=== PATIENT | male | born 1995 | race Caucasian/White ===

== ENCOUNTER → 2017-05-25 | Outpatient (CLI) | payer OTHER ==
--- NOTE | 2017-05-25 17:17 | XR ---
EXAMINATION TYPE: XR scoliosis survey DATE OF EXAM: 05/25/2017 COMPARISON: NONE HISTORY: 22-year-old male cerebral palsy. TECHNIQUE: AP and lateral views. Exam performed with the patient supine and sitting CT is unable to s tand erect. FINDINGS: Left-sided generator device with leads extending to the left side of the neck. 12 rib bearing thoracic vertebral bodies. 5 lumbar type vertebral bodies. There is a rotary reverse S-shaped scoliosis. Possible butterfly vertebra of C7. The thoracic levoconvex curvature has a Johnston angle of 30 degrees. The thoracolumbar dextroconvex curvature in the common 28 degrees. There is osteopenia limiting assessment on the lateral view. IMPRESSION: 1. 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 2. Moderate reverse S-shaped scoliosis. Johnston angle of 30 degrees in the thoracic spine and 28 degrees at the thoracolumbar junction.
--- NOTE | 2017-06-08 10:37 | XR ---
EXAMINATION TYPE: XR Hip Bilateral Complete DATE OF EXAM: 06/08/2017 CLINICAL HISTORY: pain TECHNIQUE: AP and frogleg views of the bilateral hips are obtained. COMPARISON: None. FINDINGS: There is dysplastic left hip with remodeling of the left femoral head and acetabular fossa. Partial dislocation of the dysplastic left femoral head. The right hip appears to be well formed. No dysplastic changes seen. No evidence for fracture or dislocation. IMPRESSION: 1. Congenital hip dysplasia left hip.
== END | disposition home or self-care (01) ==
LOC: RADXRMAIN 11:40
PROVIDERS: ATTEND Pediatrics
DX: M41.9 Scoliosis, unspecified (principal); Q65.89 Other specified congenital deformities of hip; G80.8 Other cerebral palsy
CPT/HCPCS: 72082; 73521

== ENCOUNTER 2018-08-14 08:08 | Inpatient (IN) | payer OTHER ==
[2018-08-14] MEDS ORDERED: SODIUM CHLORIDE 0.9% 500 ML 500 ML IV STA (08:31)
[2018-08-14] MEDS ORDERED: SODIUM CHLORIDE 0.9% 1,000 ML IV STA (08:31)
[2018-08-14] MEDS ORDERED: ACETAMINOPHEN IVPB STA (08:46)
[2018-08-14] MEDS ORDERED: methylPREDNISolone SOD SUCCI 125 MG/2 ML VIAL IV STA (08:46)
--- NOTE | 2018-08-14 09:08 | ED ---
Weakness HPI - General Chief complaint: Weakness Stated complaint: Congestion/cough Time Seen by Provider: 08/14/18 08:23 Source: patient Mode of arrival: EMS Limitations: no limitations - Related Data Home Medications Medication Instructions Recorded Confirmed Omeprazole [PriLOSEC] 20 mg PO BID 02/03/16 08/14/18 Polyethylene Glycol 3350 [Miralax] 17 gm PO DAILY 02/03/16 08/14/18 Scopolamine [TransDerm Scop] 1 patch TRANSDERM Q72H 02/03/16 08/14/18 clonazePAM [KlonoPIN] 0.5 mg PO BID 02/03/16 08/14/18 lamoTRIgine [LaMICtal] 150 mg PO BID 02/03/16 08/14/18 Cholecalciferol [Vitamin D3] 1,000 unit PO DAILY 08/14/18 08/14/18 Diazepam [Diastat] 7.5 mg RECTAL DAILY PRN 08/14/18 08/14/18 Levofloxacin [Levaquin] 500 mg PO DAILY 08/14/18 08/14/18 Multivitamins, Thera [Multivitamin 1 tab PO DAILY 08/14/18 08/14/18 (formulary)] Ondansetron [Zofran ODT] 4 mg PO Q8HR PRN 08/14/18 08/14/18 levETIRAcetam [Keppra] 1,000 mg PO Q12HR 08/14/18 08/14/18 tiZANidine HCL 4 mg PO BID 08/14/18 08/14/18 Allergies Allergy/AdvReac Type Severity Reaction Status Date / Time adhesive tape Allergy BLISTERS Verified 08/14/18 08:56 AND RED SKIN Review of Systems ROS Statement: Those systems with pertinent positive or pertinent negative responses have been documented in the HPI. ROS Other: All systems not noted in ROS Statement are negative. Past Medical History Past Medical History: Asthma, Seizure Disorder Additional Past Medical History / Comment(s): cerebral palsy, VOMITING , INCONTINENT, LAST SEIZURE 07/17/16 History of Any Multi-Drug Resistant Organisms: None Reported Past Surgical History: Hernia Repair Additional Past Surgical History / Comment(s): VAGAL NERVE STIMULATOR, TESTICLE SURGERY, BILATERAL FOOT SURGERY, brain surg tumor removal Past Anesthesia/Blood Transfusion Reactions: No Reported Reaction Past Psychological History: No Psychological Hx Reported Smoking Status: Never smoker - Past Family History Mother Family Medical History: No Reported History General Exam Limitations: no limitations Course Vital Signs 08/14/18 08/14/18 08/14/18 08:12 08:20 08:30 Temperature 98.5 F Pulse Rate 117 H 122 H Respiratory 28 H 20 Rate Blood Pressure 94/63 94/63 O2 Sat by Pulse 92 L 90 L 86 L Oximetry 08/14/18 08/14/18 08/14/18 08:40 08:50 09:00 Temperature Pulse Rate 118 H 116 H 114 H Respiratory 22 20 220 H Rate Blood Pressure 86/60 86/60 86/60 O2 Sat by Pulse 90 L 92 L 92 L Oximetry 08/14/18 08/14/18 08/14/18 09:10 09:20 09:30 Temperature Pulse Rate 114 H 102 H Respiratory 26 H 21 Rate Blood Pressure 95/65 95/65 95/65 O2 Sat by Pulse 90 L 91 L Oximetry 08/14/18 08/14/18 08/14/18 10:00 10:10 10:20 Temperature Pulse Rate 94 112 H 100 Respiratory 22 31 H 28 H Rate Blood Pressure 92/56 92/56 O2 Sat by Pulse 93 L 97 Oximetry 08/14/18 08/14/18 10:30 10:32 Temperature Pulse Rate 96 96 Respiratory 30 H 30 H Rate Blood Pressure 92/56 92/56 O2 Sat by Pulse Oximetry - Reevaluation(s) Reevaluation #1: 08/14/18 11:35 Medical record is reviewed Reevaluation #2: 08/14/18 11:35 did have recurrent seizure here in the ER EKG Findings - EKG Comments: EKG Findings:: EKG shows sinus tachycardia rate 1:15, ME 146, QRS 80, QTC 445 Medical Decision Making - Medical Decision Making 20 female the ER for evaluation of fever weakness and altered mental status, patient with recurrent seizures as well. Prolonged postictal state. Patient will be admitted for neurologic evaluation, IV antibiotics regarding pneumonia - Lab Data Result diagrams: 08/14/18 08:30 08/14/18 08:30 Lab Results 08/14/18 08/14/18 08/14/18 Range/Units 08:30 08:30 08:30 WBC 15.2 H (3.8-10.6) k/uL RBC 4.31 (4.30-5.90) m/uL Hgb 11.5 L (13.0-17.5) gm/dL Hct 35.9 L (39.0-53.0) % MCV 83.2 (80.0-100.0) fL MCH 26.7 (25.0-35.0) pg MCHC 32.1 (31.0-37.0) g/dL RDW 19.6 H (11.5-15.5) % Plt Count 392 (150-450) k/uL Neutrophils % 87 % Lymphocytes % 6 % Monocytes % 6 % Eosinophils % 0 % Basophils % 0 % Neutrophils # 13.2 H (1.3-7.7) k/uL Lymphocytes # 0.8 L (1.0-4.8) k/uL Monocytes # 0.9 (0-1.0) k/uL Eosinophils # 0.0 (0-0.7) k/uL Basophils # 0.0 (0-0.2) k/uL Anisocytosis Slight Microcytosis Slight PT (9.0-12.0) sec INR (<1.2) APTT (22.0-30.0) sec Sodium 143 (137-145) mmol/L Potassium 4.4 (3.5-5.1) mmol/L Chloride 106 (98-107) mmol/L Carbon Dioxide 24 (22-30) mmol/L Anion Gap 13 mmol/L BUN 43 H (9-20) mg/dL Creatinine 1.03 (0.66-1.25) mg/dL Est GFR (CKD-EPI)AfAm >90 (>60 ml/min/1.73 sqM) Est GFR (CKD-EPI)NonAf >90 (>60 ml/min/1.73 sqM) Glucose 123 H (74-99) mg/dL Plasma Lactic Acid Michael (0.7-2.0) mmol/L Calcium 9.6 (8.4-10.2) mg/dL Phosphorus 4.2 (2.5-4.5) mg/dL Magnesium 3.0 H (1.6-2.3) mg/dL Total Bilirubin 0.2 (0.2-1.3) mg/dL AST 35 (17-59) U/L ALT 29 (21-72) U/L Alkaline Phosphatase 163 H (38-126) U/L Total Creatine Kinase 424 H (55-170) U/L CK-MB (CK-2) 3.5 H (0.0-2.4) ng/mL CK-MB (CK-2) Rel Index 0.8 Troponin I 0.060 H* (0.000-0.034) ng/mL Total Protein 7.4 (6.3-8.2) g/dL Albumin 4.0 (3.5-5.0) g/dL 08/14/18 08/14/18 Range/Units 08:30 08:30 WBC (3.8-10.6) k/uL RBC (4.30-5.90) m/uL Hgb (13.0-17.5) gm/dL Hct (39.0-53.0) % MCV (80.0-100.0) fL MCH (25.0-35.0) pg MCHC (31.0-37.0) g/dL RDW (11.5-15.5) % Plt Count (150-450) k/uL Neutrophils % % Lymphocytes % % Monocytes % % Eosinophils % % Basophils % % Neutrophils # (1.3-7.7) k/uL Lymphocytes # (1.0-4.8) k/uL Monocytes # (0-1.0) k/uL Eosinophils # (0-0.7) k/uL Basophils # (0-0.2) k/uL Anisocytosis Microcytosis PT 11.3 (9.0-12.0) sec INR 1.2 H (<1.2) APTT 27.7 (22.0-30.0) sec Sodium (137-145) mmol/L Potassium (3.5-5.1) mmol/L Chloride (98-107) mmol/L Carbon Dioxide (22-30) mmol/L Anion Gap mmol/L BUN (9-20) mg/dL Creatinine (0.66-1.25) mg/dL Est GFR (CKD-EPI)AfAm (>60 ml/min/1.73 sqM) Est GFR (CKD-EPI)NonAf (>60 ml/min/1.73 sqM) Glucose (74-99) mg/dL Plasma Lactic Acid Michael 1.4 (0.7-2.0) mmol/L Calcium (8.4-10.2) mg/dL Phosphorus (2.5-4.5) mg/dL Magnesium (1.6-2.3) mg/dL Total Bilirubin (0.2-1.3) mg/dL AST (17-59) U/L ALT (21-72) U/L Alkaline Phosphatase (38-126) U/L Total Creatine Kinase (55-170) U/L CK-MB (CK-2) (0.0-2.4) ng/mL CK-MB (CK-2) Rel Index Troponin I (0.000-0.034) ng/mL Total Protein (6.3-8.2) g/dL Albumin (3.5-5.0) g/dL - Radiology Data Radiology results: report reviewed (ED brain negative chest x-ray positive for pneumonia), image reviewed Disposition Clinical Impression: Dehydration, Community acquired pneumonia, Recurrent seizures Disposition: ADMITTED IP TO THIS [facility] Condition: Fair Is patient prescribed a controlled substance at d/c from ED?: No Referrals: Stephanie Minor MD [Primary Care Provider] - 1-2 days
[2018-08-14 09:12] LABS: ALT 29 U/L (21-72); AST 35 U/L (17-59); Alkaline Phosphatase 163 U/L (38-126); Anion Gap 13 mmol/L; Blood Urea Nitrogen 43 mg/dL (9-20); Calcium 9.6 mg/dL (8.4-10.2); Carbon Dioxide 24 mmol/L (22-30); Chloride 106 mmol/L (98-107); Glucose 123 mg/dL (74-99); Phosphorus 4.2 mg/dL (2.5-4.5); Potassium 4.4 mmol/L (3.5-5.1); Sodium 143 mmol/L (137-145); Total Bilirubin 0.2 mg/dL (0.2-1.3); Total Protein 7.4 g/dL (6.3-8.2)
[2018-08-14 09:13] LABS: Anisocytosis Slight; Basophils % (A) 0 %; Eosinophils % (A) 0 %; HCT 35.9 % (39.0-53.0); HGB 11.5 gm/dL (13.0-17.5); Lymphocytes # (A) 0.8 k/uL (1.0-4.8); Lymphocytes % (A) 6 %; MCH 26.7 pg (25.0-35.0); MCHC 32.1 g/dL (31.0-37.0); MCV 83.2 fL (80.0-100.0); Mean Platelet Volume 7.4; Microcytosis Slight; Monocytes # (A) 0.9 k/uL (0-1.0); Monocytes % (A) 6 %; Neutrophils # (A) 13.2 k/uL (1.3-7.7); Neutrophils % (A) 87 %; Platelet Count 392 k/uL (150-450); RBC 4.31 m/uL (4.30-5.90); RDW 19.6 % (11.5-15.5); WBC 15.2 k/uL (3.8-10.6)
[2018-08-14 09:22] LABS: INR 1.2 (<1.2); Partial Thromboplastin Time 27.7 sec (22.0-30.0); Prothrombin Time 11.3 sec (9.0-12.0)
[2018-08-14 09:35] LABS: Creatine Kinase MB 3.5 ng/mL (0.0-2.4)
[2018-08-14 10:01] LABS: Troponin I 0.06 ng/mL (0.000-0.034)
--- NOTE | 2018-08-14 10:06 | CT ---
EXAMINATION TYPE: CT brain wo con DATE OF EXAM: 08/14/2018 COMPARISON: Prior brain CT 02/03/2016 HISTORY: seizure activity/brain tumor [address] DLP: 1082.4 mGycm. Automated Exposure Control for Dose Reduction was Utilized. TECHNIQUE: CT scan of the head is performed without contrast. FINDINGS: There is no acute intracranial hemorrhage, mass effect, or midline shift identified. Ther e is been interval left frontal craniotomy, some focal encephalomalacia is present in the left fronta l lobe, an area previous abnormal low attenuation at this level is no longer seen and most likely pos top change. Extra-axial phenomenon again noted at the posterior horn of the left lateral ventricle, t emporal horn. Septal malacia present in the left occipital lobe similar to prior exam. Magna cisterna magna appearance in the posterior fossa is again seen. Inflammatory changes present in the sphenoid sinus, ethmoid air cells. IMPRESSION: No acute intracranial hemorrhage, mass effect, or midline shift is seen. Interval surger y, there is postop change with volume loss of the left cerebrum as described.
--- NOTE | 2018-08-14 10:10 | XR ---
EXAMINATION TYPE: XR chest 2V DATE OF EXAM: 08/14/2018 COMPARISON: Prior chest x-ray 02/03/2016 HISTORY: Weakness, abnormal chest x-ray TECHNIQUE: Frontal and lateral views of the chest are obtained. FINDINGS: There is no pleural effusion or pneumothorax seen. Difficult to exclude airspace disease in the left lower lobe. The cardiac silhouette size is within normal limits. The osseous structure s are intact. Generators present in left pectoral region, leads are coursing towards the left neck. T here are overlying cardiac leads. There is an underlying scoliosis. IMPRESSION: Correlate to exclude lower lobe pneumonia.
[2018-08-14] MEDS ORDERED: AZITHROMYCIN 500 MG in SODIUM CHLORIDE 0.9% 250 ML IVPB STA (11:32)
[2018-08-14] MEDS ORDERED: PNEUMONIA PROTOCOL UTILIZED 1 EACH MISC PO PRN (11:32)
[2018-08-14 11:39] LABS: Appearance,Urine Clear (Clear); Bilirubin,Urine Negative (Negative); Blood,Urine Negative (Negative); Color,Urine Yellow; Glucose,Urine (UA) Negative (Negative); Hyaline Casts,Urine 5 /lpf (0-2); Ketones,Urine Trace (Negative); Leukocyte Esterase,Urine Negative (Negative); Mucus,Urine Rare /hpf; Nitrite,Urine Negative (Negative); PH, Urine 5.5 (5.0-8.0); Protein,Urine 1+ (Negative); Specific Gravity,Urine 1.024 (1.001-1.035); Squamous Epithelial Cell,Urine <1 /hpf (0-4); Urobilinogen,Urine <2.0 mg/dL (<2.0); WBC,Urine 2 /hpf (0-5)
[2018-08-14] MEDS ORDERED: INFLUENZA VACCINE (6 MOS+) 60 MCG/0.5 ML SYRINGE IM ONE (12:38)
[2018-08-14] MEDS: IPRATROPIUM-ALBUTEROL 3 ML NEB INHALATION SCH ×3 (13:05→21:20)
[2018-08-14] MEDS ORDERED: DIAZEPAM 7.5 MG RECTAL PRN (14:54)
[2018-08-14] MEDS ORDERED: LORazepam 2 MG/ML INJ IV PRN (15:03)
[2018-08-14] MEDS: SODIUM CHLORIDE 0.9% 1,000 ML IV SCH ×2 (15:05→21:50)
[2018-08-14] MEDS ORDERED: SCOPOLAMINE 1.5MG/72HR PATCH TRANSDERM SCH (16:00)
[2018-08-14] MEDS ORDERED: PANTOPRAZOLE 40 MG TABLET PO SCH (17:30)
[2018-08-14] MEDS: lamoTRIgine 25 MG TAB PO SCH (18:55)
[2018-08-14] MEDS: lamoTRIgine 100 MG TAB PO SCH (18:56)
--- NOTE | 2018-08-14 19:20 | P.CNNES ---
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 The patient is nonverbal and has severe MR. History is obtained from the patient's guardian and grandmother. Apparently the patient had a seizure in school day and he was sent to [facility]. He was found to be all right and he was sent home. Yesterday his grandmother said she he looked fine so she sent him to school again. Apparently in school he vomited and had a seizure and she was sent home. She took and then to his primary care physician and he was started on antibiotic. The patient's grandmother then noticed that his he had developed some rapid breathing and sweating so she called EMS and requested that the patient be brought to [facility]. The patient was brought here today and the complaint was weakness congestion and cough. Normally when he gets 6 he also has more frequent seizures. His seizure type is usually myoclonic and he has one a week and in general but when he sick he can have more frequent seizures. The patient is on Lamictal Keppra and Klonopin for his seizures as well as a VNS. He is followed with neurology at [facility]. Review of Systems ROS unobtainable: due to mental status Past Medical History Past Medical History: Asthma, Seizure Disorder Additional Past Medical History / Comment(s): Cerebrak palsey, nonverbal, able to knee walk and occasionally uses walker but goes backwards, needs to be fed, incontinent or urine/stool, seizures with last time 08/14/18, occasional problem with vomiting for past year, esophagitis, hiatal hernia. History of Any Multi-Drug Resistant Organisms: None Reported Past Surgical History: Hernia Repair Additional Past Surgical History / Comment(s): VAGAL NERVE STIMULATOR, SURGERY FOR TESTICULAR NON DESCENCION/INGUINAL HERNIA SURGERY, BILATERAL FOOT SURGERY- LENGTHENED ACHILLES AND MOVED MUSCLES, benign brain surg tumor removal, EGD with bx. Past Anesthesia/Blood Transfusion Reactions: No Reported Reaction Past Psychological History: No Psychological Hx Reported Additional Psychological History / Comment(s): Pt resides with his mother/ father. MotherOpal is pt's legal guardian and caregiver. Pt is lifted by parents into a wheelchair. Pt at times will knee walk. He will occasionally use a rolled walker but goes backwards. He is nonverbal. He cannot feed himself. He is incontinent of urine and stool. Smoking Status: Never smoker Past Alcohol Use History: None Reported Past Drug Use History: None Reported - Past Family History Mother Family Medical History: Cancer Additional Family Medical History / Comment(s): Mother had ovarian cancer with surgery in 2017. Father Additional Family Medical History / Comment(s): Pts father is not involved in pt 's life. Father's side of family has diabetes. Medications and Allergies Home Medications Medication Instructions Recorded Confirmed Type Omeprazole [PriLOSEC] 20 mg PO BID 02/03/16 08/14/18 History Polyethylene Glycol 3350 [Miralax] 17 gm PO DAILY 02/03/16 08/14/18 History Scopolamine [TransDerm Scop] 1 patch TRANSDERM Q72H 02/03/16 08/14/18 History clonazePAM [KlonoPIN] 0.5 mg PO BID 02/03/16 08/14/18 History lamoTRIgine [LaMICtal] 150 mg PO BID 02/03/16 08/14/18 History Cholecalciferol [Vitamin D3] 1,000 unit PO DAILY 08/14/18 08/14/18 History Diazepam [Diastat] 7.5 mg RECTAL DAILY PRN 08/14/18 08/14/18 History Levofloxacin [Levaquin] 500 mg PO DAILY 08/14/18 08/14/18 History Multivitamins, Thera [Multivitamin 1 tab PO DAILY 08/14/18 08/14/18 History (formulary)] Ondansetron [Zofran ODT] 4 mg PO Q8HR PRN 08/14/18 08/14/18 History levETIRAcetam [Keppra] 1,000 mg PO Q12HR 08/14/18 08/14/18 History tiZANidine HCL 4 mg PO BID 08/14/18 08/14/18 History Allergies Allergy/AdvReac Type Severity Reaction Status Date / Time adhesive tape Allergy BLISTERS Verified 08/14/18 08:56 AND RED SKIN Physical Examination - Vital Signs Vital Signs: Vital Signs Temp Pulse Pulse Resp BP BP Pulse Ox 08/14/18 16:00 98.7 F 85 20 100/66 97 08/14/18 13:37 98.2 F 91 86 21 107/75 102/65 98 08/14/18 13:05 91 24 107/75 97 08/14/18 12:50 91 24 107/75 97 08/14/18 12:40 87 22 107/75 98 08/14/18 12:30 85 22 97/82 98 08/14/18 12:20 89 19 97/82 99 08/14/18 12:10 85 25 H 97/82 100 08/14/18 12:00 82 17 99/70 08/14/18 11:50 87 22 99/70 99 08/14/18 11:40 86 11 L 99/70 98 08/14/18 11:30 88 23 92/64 99 08/14/18 11:20 92 22 92/64 99 08/14/18 11:10 90 27 H 92/64 99 08/14/18 11:00 92 21 88/58 98 08/14/18 10:50 89 26 H 88/58 99 08/14/18 10:40 96 19 88/58 96 08/14/18 10:32 96 30 H 92/56 08/14/18 10:30 96 30 H 92/56 08/14/18 10:20 100 28 H 92/56 08/14/18 10:10 112 H 31 H 92/56 97 08/14/18 10:00 94 22 93 L 08/14/18 09:30 95/65 08/14/18 09:20 102 H 21 95/65 91 L 08/14/18 09:10 114 H 26 H 95/65 90 L 08/14/18 09:00 114 H 220 H 86/60 92 L 08/14/18 08:50 116 H 20 86/60 92 L 08/14/18 08:40 118 H 22 86/60 90 L 08/14/18 08:30 122 H 20 94/63 86 L 08/14/18 08:20 98.5 F 117 H 28 H 94/63 90 L 08/14/18 08:12 92 L Intake and Output 08/14/18 08/14/18 08/14/18 06:59 14:59 22:59 Intake Total 600 Balance 600 Intake: Amount of Fluid Infused ( 600 ml) Other: Voiding Method Diaper Diaper Weight 31.751 kg - Constitutional General appearance: thin - EENT EENT: PERRL - Respiratory Respiratory: lungs clear - Cardiovascular Cardiovascular: regular rate - Neurologic Neurologic examination: Mental status the patient was awake he was alert his eyes were open he made eye contact he was nonverbal he has severe cognitive impairment next Cranial nerve examination pupils were 2 mm and equal there is no facial asymmetry next Motor examination he has spastic paresis in all 4 extremities Results - Laboratory Findings CBC and BMP: 08/14/18 08:30 08/14/18 08:30 Abnormal Lab Findings: Abnormal Labs 08/14/18 08/14/18 08/14/18 08:30 08:30 08:30 WBC 15.2 H Hgb 11.5 L Hct 35.9 L RDW 19.6 H Neutrophils # 13.2 H Lymphocytes # 0.8 L INR BUN 43 H Glucose 123 H Magnesium 3.0 H Alkaline Phosphatase 163 H Total Creatine Kinase 424 H CK-MB (CK-2) 3.5 H Troponin I 0.060 H* Urine Protein Urine Ketones Hyaline Casts Urine Mucus 08/14/18 08/14/18 08:30 10:45 WBC Hgb Hct RDW Neutrophils # Lymphocytes # INR 1.2 H BUN Glucose Magnesium Alkaline Phosphatase Total Creatine Kinase CK-MB (CK-2) Troponin I Urine Protein 1+ H Urine Ketones Trace H Hyaline Casts 5 H Urine Mucus Rare H Assessment and Plan (1) Recurrent seizures Current Visit: Yes Status: Acute SNOMED Code(s): 33986628 (2) Community acquired pneumonia Current Visit: Yes Status: Acute SNOMED Code(s): 389164523 (3) Dehydration Current Visit: Yes Status: Acute SNOMED Code(s): 64378828 Plan: The patient is a 23-year-old man with epilepsy with recent recurrent seizures most likely due to underlying infection. He is being treated for community- acquired pneumonia. According to his grandmother he is looking better now and he is able to swallow his pills. Patient will have Keppra and Lamictal levels drawn. He had a CT of the brain in the emergency room which showed no acute hemorrhage or mass effect. There was also postoperative changes seen in the left cerebrum
[2018-08-14] MEDS: levETIRAcetam IV 1,000 MG in SALINE 1 100ML.BAG IVPB SCH (19:58)
[2018-08-14] MEDS: tiZANidine 4 MG TAB PO SCH (19:59)
[2018-08-14] MEDS: PANTOPRAZOLE 40 MG/10 ML VIAL IV SCH (19:59)
[2018-08-14] MEDS ORDERED: levETIRAcetam 500 MG TAB PO SCH (21:00)
--- NOTE | 2018-08-14 23:27 | P.HPIM ---
History of Present Illness H&P Date: 08/14/18 Chief Complaint: Seizures Patient is a 23-year-old male with a known history of cerebral palsy, seizure disorder and asthma was brought to the hospital due to fever and [facility] seizure activity at home. Patient also having prolonged postictal state. Patient is nonverbal at baseline. Aberrantly patient had a seizure activity while he was at school initially 2 days back and was sent to [facility]. Patient was monitored at [facility] and was sent home. Patient had a seizure activity of going back to school and has an episode of vomiting as well. Patient also developed fever and also shortness of breath with a rapid breathing and EMS was called to transfer the patient to [facility] for neurological evaluation. Patient is having shortness of breath and also copious amount of secretions in the throat. Patient also had myoclonic seizure activity this morning while he was in the cardiac care unit. Patient cannot provide any history and most of the history was taken from the medical records and grandmother at bedside. Chest x-ray showed correlate for lower lobe pneumonia. CT head showed no acute intracranial hemorrhage, mass affect or midline shift noted. Patient is kept nothing by mouth currently.. Patient was afebrile on admission. Patient is tachycardic and tachypneic. Review of Systems Complete review of systems could not be obtained from the patient. Past Medical History Past Medical History: Asthma, Seizure Disorder Additional Past Medical History / Comment(s): Cerebrak palsey, nonverbal, able to knee walk and occasionally uses walker but goes backwards, needs to be fed, incontinent or urine/stool, seizures with last time 08/14/18, occasional problem with vomiting for past year, esophagitis, hiatal hernia. History of Any Multi-Drug Resistant Organisms: None Reported Past Surgical History: Hernia Repair Additional Past Surgical History / Comment(s): VAGAL NERVE STIMULATOR, SURGERY FOR TESTICULAR NON DESCENCION/INGUINAL HERNIA SURGERY, BILATERAL FOOT SURGERY- LENGTHENED ACHILLES AND MOVED MUSCLES, benign brain surg tumor removal, EGD with bx. Past Anesthesia/Blood Transfusion Reactions: No Reported Reaction Past Psychological History: No Psychological Hx Reported Additional Psychological History / Comment(s): Pt resides with his mother/ father. MotherOpal is pt's legal guardian and caregiver. Pt is lifted by parents into a wheelchair. Pt at times will knee walk. He will occasionally use a rolled walker but goes backwards. He is nonverbal. He cannot feed himself. He is incontinent of urine and stool. Smoking Status: Never smoker Past Alcohol Use History: None Reported Past Drug Use History: None Reported - Past Family History Mother Family Medical History: Cancer Additional Family Medical History / Comment(s): Mother had ovarian cancer with surgery in 2017. Father Additional Family Medical History / Comment(s): Pts father is not involved in pt 's life. Father's side of family has diabetes. Medications and Allergies Home Medications Medication Instructions Recorded Confirmed Type Omeprazole [PriLOSEC] 20 mg PO BID 02/03/16 08/14/18 History Polyethylene Glycol 3350 [Miralax] 17 gm PO DAILY 02/03/16 08/14/18 History Scopolamine [TransDerm Scop] 1 patch TRANSDERM Q72H 02/03/16 08/14/18 History clonazePAM [KlonoPIN] 0.5 mg PO BID 02/03/16 08/14/18 History lamoTRIgine [LaMICtal] 150 mg PO BID 02/03/16 08/14/18 History Cholecalciferol [Vitamin D3] 1,000 unit PO DAILY 08/14/18 08/14/18 History Diazepam [Diastat] 7.5 mg RECTAL DAILY PRN 08/14/18 08/14/18 History Levofloxacin [Levaquin] 500 mg PO DAILY 08/14/18 08/14/18 History Multivitamins, Thera [Multivitamin 1 tab PO DAILY 08/14/18 08/14/18 History (formulary)] Ondansetron [Zofran ODT] 4 mg PO Q8HR PRN 08/14/18 08/14/18 History levETIRAcetam [Keppra] 1,000 mg PO Q12HR 08/14/18 08/14/18 History tiZANidine HCL 4 mg PO BID 08/14/18 08/14/18 History Allergies Allergy/AdvReac Type Severity Reaction Status Date / Time adhesive tape Allergy BLISTERS Verified 08/14/18 08:56 AND RED SKIN Physical Exam Vitals: Vital Signs Temp Pulse Resp BP Pulse Ox 08/14/18 12:50 91 24 107/75 97 08/14/18 12:40 87 22 107/75 98 08/14/18 12:30 85 22 97/82 98 08/14/18 12:20 89 19 97/82 99 08/14/18 12:10 85 25 H 97/82 100 08/14/18 12:00 82 17 99/70 08/14/18 11:50 87 22 99/70 99 08/14/18 11:40 86 11 L 99/70 98 08/14/18 11:30 88 23 92/64 99 08/14/18 11:20 92 22 92/64 99 08/14/18 11:10 90 27 H 92/64 99 08/14/18 11:00 92 21 88/58 98 08/14/18 10:50 89 26 H 88/58 99 08/14/18 10:40 96 19 88/58 96 08/14/18 10:32 96 30 H 92/56 08/14/18 10:30 96 30 H 92/56 08/14/18 10:20 100 28 H 92/56 08/14/18 10:10 112 H 31 H 92/56 97 08/14/18 10:00 94 22 93 L 08/14/18 09:30 95/65 08/14/18 09:20 102 H 21 95/65 91 L 08/14/18 09:10 114 H 26 H 95/65 90 L 08/14/18 09:00 114 H 220 H 86/60 92 L 08/14/18 08:50 116 H 20 86/60 92 L 08/14/18 08:40 118 H 22 86/60 90 L 08/14/18 08:30 122 H 20 94/63 86 L 08/14/18 08:20 98.5 F 117 H 28 H 94/63 90 L 08/14/18 08:12 92 L Intake and Output 08/13/18 08/14/18 08/14/18 22:59 06:59 14:59 Other: Weight 31.751 kg PHYSICAL EXAMINATION: Patient is lying in the bed comfortably, no acute distress, drowsy and lethargic.. Patient is nonverbal.. HEENT: Normocephalic. Neck is supple. Pupils reactive. Nostrils clear. Oral cavity is moist. Ears reveal no drainage. Neck reveals no JVD, carotid bruits, or thyromegaly. CHEST EXAMINATION: Trachea is central. Symmetrical expansion. Bibasilar crackles and no wheezing. CARDIAC: Normal S1, S2 with no gallops. No murmurs ABDOMEN: Soft. Bowel sounds normal. No organomegaly. No abdominal bruits. Extremities: reveal no edema. No clubbing or cyanosis Neurologically patient is lethargic and drowsy. Able to move all extremities. Skin: No rash or skin lesions. Psychiatric: Coperative. Nonsuicidal Musculoskeletal: No joint swelling or deformity. Normal range of motion. Results CBC & Chem 7: 08/14/18 08:30 08/14/18 08:30 Labs: Abnormal Lab Results - Last 24 Hours (Table) 08/14/18 08/14/18 08/14/18 Range/Units 08:30 08:30 08:30 WBC 15.2 H (3.8-10.6) k/uL Hgb 11.5 L (13.0-17.5) gm/dL Hct 35.9 L (39.0-53.0) % RDW 19.6 H (11.5-15.5) % Neutrophils # 13.2 H (1.3-7.7) k/uL Lymphocytes # 0.8 L (1.0-4.8) k/uL INR (<1.2) BUN 43 H (9-20) mg/dL Glucose 123 H (74-99) mg/dL Magnesium 3.0 H (1.6-2.3) mg/dL Alkaline Phosphatase 163 H (38-126) U/L Total Creatine Kinase 424 H (55-170) U/L CK-MB (CK-2) 3.5 H (0.0-2.4) ng/mL Troponin I 0.060 H* (0.000-0.034) ng/mL Urine Protein (Negative) Urine Ketones (Negative) Hyaline Casts (0-2) /lpf Urine Mucus (None) /hpf 08/14/18 08/14/18 Range/Units 08:30 10:45 WBC (3.8-10.6) k/uL Hgb (13.0-17.5) gm/dL Hct (39.0-53.0) % RDW (11.5-15.5) % Neutrophils # (1.3-7.7) k/uL Lymphocytes # (1.0-4.8) k/uL INR 1.2 H (<1.2) BUN (9-20) mg/dL Glucose (74-99) mg/dL Magnesium (1.6-2.3) mg/dL Alkaline Phosphatase (38-126) U/L Total Creatine Kinase (55-170) U/L CK-MB (CK-2) (0.0-2.4) ng/mL Troponin I (0.000-0.034) ng/mL Urine Protein 1+ H (Negative) Urine Ketones Trace H (Negative) Hyaline Casts 5 H (0-2) /lpf Urine Mucus Rare H (None) /hpf Thrombosis Risk Factor Assmnt - DVT/VTE Prophylaxis DVT/VTE Prophylaxis: Pharmacologic Prophylaxis ordered - Choose All That Apply Any of the Below Risk Factors Present?: Yes Each Factor Represents 1 point: Medical pt on bed rest, Serious lung disease incl. 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 Currently on Lamictal and Keppra at home Cerebral palsy. Nonverbal. Able to knee walk and occasionally uses a walker but goes backwards. Needs to be fed. History of vaginal level stimulator. Patient has scheduled appointment next week for stimulator check. DVT prophylaxis Plan: Patient will be continued on Antivert the form of ceftriaxone and azithromycin. Ativan IV when necessary for seizures. Patient will be continued on Keppra IV and Lamictal could not be converted to IV as per pharmacy. Seizure precautions and fall precautions. Neurology was consulted. Continue with the throat suction due to frothy secretions. Continue with scopolamine patch which he uses at home. Further recommendations based on clinical course. Prognosis is guarded. Time with Patient: Greater than 30
[2018-08-15 05:08] LABS: Glucose,Whole Blood 91 mg/dL (75-99)
[2018-08-15 06:10] LABS: Anisocytosis Moderate; Basophils % (A) 0 %; Eosinophils # (A) 0.1 k/uL (0-0.7); Eosinophils % (A) 1 %; HCT 28.3 % (39.0-53.0); Hypochromasia Slight; Lymphocytes # (A) 1.4 k/uL (1.0-4.8); Lymphocytes % (A) 11 %; MCH 27.5 pg (25.0-35.0); MCHC 32.4 g/dL (31.0-37.0); MCV 84.7 fL (80.0-100.0); Mean Platelet Volume 8.8; Monocytes % (A) 7 %; Neutrophils # (A) 10.4 k/uL (1.3-7.7); Neutrophils % (A) 79 %; Platelet Count 307 k/uL (150-450); RBC 3.34 m/uL (4.30-5.90); WBC 13.1 k/uL (3.8-10.6)
[2018-08-15 06:13] LABS: HGB 9.2 gm/dL (13.0-17.5)
[2018-08-15] MEDS: SODIUM CHLORIDE 0.9% 1,000 ML IV SCH (07:53)
[2018-08-15] MEDS: IPRATROPIUM-ALBUTEROL 3 ML NEB INHALATION SCH ×4 (08:05→21:08)
[2018-08-15] MEDS ORDERED: AZITHROMYCIN 500 MG TAB PO SCH (09:00)
[2018-08-15] MEDS: levETIRAcetam IV 1,000 MG in SALINE 1 100ML.BAG IVPB SCH ×2 (09:32→20:11)
--- NOTE | 2018-08-15 10:11 | XR ---
EXAMINATION TYPE: XR chest 2V DATE OF EXAM: 08/15/2018 COMPARISON: 08/14/2018 INDICATION: Pneumonia and seizures TECHNIQUE: Frontal and lateral views of the chest are obtained. FINDINGS: There is a scoliosis present with convexity to the left. Electronic device overlies the left chest. The heart size is normal. The pulmonary vasculature is normal. Minimal right pleural effusion is present. Suspicious consolidation to suggest pneumonia is not ident ified.. IMPRESSION: 1. Minimal right pleural effusion
[2018-08-15] MEDS: lamoTRIgine 25 MG TAB PO SCH ×2 (10:22→20:10)
[2018-08-15] MEDS: lamoTRIgine 100 MG TAB PO SCH ×2 (10:22→20:11)
[2018-08-15] MEDS: ENOXAPARIN 40 MG/0.4 ML SYRINGE SQ SCH (10:22)
[2018-08-15] MEDS: tiZANidine 4 MG TAB PO SCH ×2 (10:23→20:10)
[2018-08-15] MEDS: MULTIVITAMINS, THERA 1 EACH TAB PO SCH (10:23)
[2018-08-15] MEDS: PANTOPRAZOLE 40 MG/10 ML VIAL IV SCH ×2 (10:24→20:11)
[2018-08-15] MEDS: AZITHROMYCIN 500 MG in SODIUM CHLORIDE 0.9% 250 ML IVPB SCH (10:37)
[2018-08-15 11:14] LABS: ALT 38 U/L (21-72); AST 83 U/L (17-59); Alkaline Phosphatase 134 U/L (38-126); Anion Gap 6 mmol/L; Blood Urea Nitrogen 17 mg/dL (9-20); Calcium 8.8 mg/dL (8.4-10.2); Carbon Dioxide 21 mmol/L (22-30); Chloride 113 mmol/L (98-107); Glucose 93 mg/dL (74-99); Potassium 3.9 mmol/L (3.5-5.1); Sodium 140 mmol/L (137-145); Total Bilirubin 0.2 mg/dL (0.2-1.3); Total Protein 5.9 g/dL (6.3-8.2)
[2018-08-15] MEDS ORDERED: SODIUM CHLORIDE 0.9% 1,000 ML IV SCH (15:30)
[2018-08-15 15:39] VITALS: BMI 13.8
--- NOTE | 2018-08-15 16:24 | EEG ---
ELECTROENCEPHALOGRAM REPORT DATE OF EE08/15/2018 ELECTROENCEPHALOGRAPHIC EXAMINATION REPORT: INDICATION FOR EXAMINATION: This patient is a 23-year-old male with history of intractable seizure disorder since . Patient has multiple seizure types, including primary generalized, epilepsy and myoclonic seizures. Patient admitted to the hospital for pneumonia and breakthrough seizures. AGE: [age]. EEG FINDINGS: A routine 21-channel awake digital EEG recording was accomplished utilizing the 10-20 international system with bipolar and referential montages. The background activity in the most alert resting state consists of a low to medium amplitude, poorly developed and poorly sustained 4-5 Hz activity over the posterior head regions. This posterior rhythm attenuates minimally to eye opening. There is a small amount of low amplitude 18-20 Hz beta activity seen maximally over the anterior head regions. Muscle and movement artifact was observed on several occasions throughout the tracing. The main feature of this tracing is the occurrence of generalized spike discharges occurring throughout the tracing. No motor effects or clinical correlates were noted. The patient was alert throughout the tracing. IMPRESSION: This EEG is abnormal due to the presence of generalized spike wave discharges occurring throughout the tracing as well as diffuse slowing of the EEG background. If clinically indicated, a follow-up EEG is recommended. Clinical correlation is recommended. MMODL / IJN: [id number] /
[2018-08-15] MEDS ORDERED: Potassium Replacement Protocol 1 EACH MISC MISCELLANE PRN (17:56)
[2018-08-15] MEDS ORDERED: POTASSIUM CHLORIDE ER 10 MEQ TAB.ER.PRT PO STA (18:11)
[2018-08-15] MEDS: POLYETHYLENE GLYCOL 3350 17 GM POWD.PACK PO PRN (20:11)
[2018-08-15] MEDS ORDERED: levETIRAcetam 500 MG TAB PO ONE (20:40)
--- NOTE | 2018-08-15 22:59 | P.PN ---
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 He is admitted to the hospital with community-acquired pneumonia and breakthrough seizures. The patient is doing somewhat better. He is more alert. His Keppra and Lamictal levels are therapeutic. The patient has a long- standing history of refractory epilepsy and is followed at [facility]. He is currently on Lamictal Keppra and Klonopin as well as a VNS stimulator Objective - Vital Signs Vital signs: Vital Signs Temp 97.9 F 08/15/18 20:00 Pulse 76 08/15/18 21:22 Resp 18 08/15/18 20:00 BP 94/52 08/15/18 20:00 Pulse Ox 99 08/15/18 20:00 Intake & Output 08/15/18 08/15/18 08/16/18 06:59 18:59 06:59 Intake Total 1600 290 420 Balance 1600 290 420 Weight 30 kg 30 kg Intake: Intake, IV Titration 1500 100 420 Amount Sodium Chloride 0.9% 1, 1100 000 ml @ 100 mls/hr IV . Q10H [facility] Rx#:[id number] Sodium Chloride 0.9% 1, 100 000 ml @ 100 mls/hr IV . Q10H [facility] Rx#:[id number] Sodium Chloride 0.9% 1, 320 000 ml @ 40 mls/hr IV . Q24H [facility] Rx#:[id number] levETIRAcetam IV 1,000 mg 400 100 In Saline 1 100ml.bag @ 400 mls/hr IVPB Q12HR [facility] Rx#:[id number] Oral 100 190 Other: Voiding Method Diaper Diaper Diaper # Voids 0 2 - Respiratory Respiratory: bilateral: rhonchi - Cardiovascular Rhythm: regular - Neurologic Neurologic Comment(s): Neurologic examination: Mental status: The patient is awake and alert his eyes are open and he is nonverbal Cranial nerve examination: Pupils are equal Motor examination: The patient has spastic quadriparesis - Labs CBC & Chem 7: 08/15/18 05:22 08/15/18 10:38 Labs: Abnormal Lab Results - Last 24 Hours (Table) 08/15/18 08/15/18 Range/Units 05:22 10:38 WBC 13.1 H (3.8-10.6) k/uL RBC 3.34 L (4.30-5.90) m/uL Hgb 9.2 L D (13.0-17.5) gm/dL Hct 28.3 L (39.0-53.0) % RDW 20.0 H (11.5-15.5) % Neutrophils # 10.4 H (1.3-7.7) k/uL Chloride 113 H (98-107) mmol/L Carbon Dioxide 21 L (22-30) mmol/L Creatinine 0.50 L (0.66-1.25) mg/dL AST 83 H (17-59) U/L Alkaline Phosphatase 134 H (38-126) U/L Total Protein 5.9 L (6.3-8.2) g/dL Albumin 3.0 L (3.5-5.0) g/dL Microbiology - Last 24 Hours (Table) 08/14/18 10:45 Urine Culture - Final Urine,Catheterized 08/14/18 08:30 Blood Culture - Preliminary Blood No Growth after 24 hours Assessment and Plan (1) Recurrent seizures Current Visit: Yes Status: Acute SNOMED Code(s): 59477696 (2) Community acquired pneumonia Current Visit: Yes Status: Acute SNOMED Code(s): 256608443 (3) Dehydration Current Visit: Yes Status: Acute SNOMED Code(s): 01091399 (4) Cerebral palsy Current Visit: Yes Status: Acute SNOMED Code(s): 726452573 Plan: The patient is a 23-year-old man with epilepsy with recent recurrent seizures most likely due to underlying infection. He is being treated for community- acquired pneumonia. The patient will be switched to oral medication. Patient had an EEG which showed general slowing and spike and wave discharges. The patient has been mostly alert during the day. He did have small seizure today according to his grandmother. Patient was given a extra bolus of oral Keppra.
[2018-08-16] MEDS: IPRATROPIUM-ALBUTEROL 3 ML NEB INHALATION SCH ×5 (08:36→20:37)
[2018-08-16] MEDS: PANTOPRAZOLE 40 MG/10 ML VIAL IV SCH (08:41)
[2018-08-16] MEDS: ENOXAPARIN 40 MG/0.4 ML SYRINGE SQ SCH (08:41)
[2018-08-16] MEDS: levETIRAcetam 500 MG TAB PO SCH ×2 (08:42→20:24)
[2018-08-16] MEDS: lamoTRIgine 100 MG TAB PO SCH ×2 (08:42→20:24)
[2018-08-16] MEDS: tiZANidine 4 MG TAB PO SCH ×2 (08:42→20:24)
[2018-08-16] MEDS: lamoTRIgine 25 MG TAB PO SCH ×2 (08:42→20:24)
[2018-08-16] MEDS: IBUPROFEN 600 MG TAB PO PRN (08:57)
[2018-08-16] MEDS: AZITHROMYCIN 500 MG in SODIUM CHLORIDE 0.9% 250 ML IVPB SCH (12:31)
[2018-08-16] MEDS: MULTIVITAMINS, THERA 1 EACH TAB PO SCH (12:31)
--- NOTE | 2018-08-16 13:11 | P.PN ---
Subjective 23-year-old gentleman with history of cerebral palsy and seizure disorder was admitted secondary to breakthrough seizures. Patient was on Keppra, Lamictal was added. Patient had a few seizures yesterday because of which patient received additional doses of antiseizure medication because of which patient is presently sleepy and is also being treated for right-sided pneumonia although there is no evidence of any infiltrate but mild pleural effusion. Patient will remain on antibiotics. Patient had low-grade fever on admission most probably viral in nature. Since last night patient didn't have any seizures. Patient will be monitored overnight EEG did show diffuse slowing consistent with encephalopathy. Patient is nonverbal presently bit sleepy secondary to antiseizure medications. Objective - Vital Signs Vital signs: Vital Signs Temp 99.2 F 08/16/18 08:00 Pulse 96 08/16/18 12:48 Resp 12 08/16/18 12:48 BP 98/48 08/16/18 12:48 Pulse Ox 98 08/16/18 12:48 Intake & Output 08/15/18 08/16/18 08/16/18 18:59 06:59 18:59 Intake Total 290 420 Balance 290 420 Weight 30 kg 30.5 kg Intake: Intake, IV Titration 100 420 Amount Sodium Chloride 0.9% 1, 100 000 ml @ 100 mls/hr IV . Q10H [facility] Rx#:[id number] Sodium Chloride 0.9% 1, 320 000 ml @ 40 mls/hr IV . Q24H [facility] Rx#:[id number] levETIRAcetam IV 1,000 mg 100 In Saline 1 100ml.bag @ 400 mls/hr IVPB Q12HR [facility] Rx#:[id number] Oral 190 Other: Voiding Method Diaper Diaper Diaper # Voids 2 1 - Exam PHYSICAL EXAMINATION: Patient is lying in the bed comfortably, no acute distress, drowsy and lethargic.. Patient is nonverbal.. HEENT: Normocephalic. Neck is supple. Pupils reactive. Nostrils clear. Oral cavity is moist. Ears reveal no drainage. Neck reveals no JVD, carotid bruits, or thyromegaly. CHEST EXAMINATION: Trachea is central. Symmetrical expansion. Bibasilar crackles and no wheezing. CARDIAC: Normal S1, S2 with no gallops. No murmurs ABDOMEN: Soft. Bowel sounds normal. No organomegaly. No abdominal bruits. Extremities: reveal no edema. No clubbing or cyanosis Neurologically patient is lethargic and drowsy. Able to move all extremities. Skin: No rash or skin lesions. Psychiatric: Coperative. Nonsuicidal Musculoskeletal: No joint swelling or deformity. Normal range of motion. - Labs CBC & Chem 7: 08/15/18 05:22 08/15/18 10:38 Labs: Microbiology - Last 24 Hours (Table) 08/14/18 08:30 Blood Culture - Preliminary Blood No Growth after 48 hours 08/14/18 10:45 Urine Culture - Final Urine,Catheterized Assessment and Plan Plan: Sepsis most probably viral, possibility of right lower lobe pneumonia is low Recurrent myoclonic seizures: Continue with present medications monitor overnight if patient doesn't have any seizures will be discharged tomorrow. Asthma Seizure disorder. Currently on Lamictal and Keppra at home Cerebral palsy. Nonverbal. Supportive care patient is on scopolamine patch for excessive secretions which can cause seizures although patient has been on this medication at home DVT prophylaxis
[2018-08-16] MEDS: PANTOPRAZOLE SODIUM 40 MG GRANULE PKT PO SCH (18:12)
[2018-08-16] MEDS ORDERED: IPRATROPIUM-ALBUTEROL 3 ML NEB INHALATION PRN (19:42)
[2018-08-16] MEDS ORDERED: levETIRAcetam 250 MG TAB PO STA (19:48)
--- NOTE | 2018-08-16 19:55 | P.PN ---
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 He is on Keppra and Lamictal for seizure management. He has been hospitalized with community-acquired pneumonia and he continues to have some breakthrough seizures. Seizures are occurring mainly at evening hours and associated with some fever. History the patient received an extra bolus of Keppra. Will have repeat Keppra and Lamictal levels drawn in a.m. We will increase his maintenance dose of Keppra 2000 mg in the morning and 1250 at night Objective - Vital Signs Vital signs: Vital Signs Temp 97.8 F 08/16/18 15:00 Pulse 74 08/16/18 15:00 Resp 12 08/16/18 15:00 BP 90/51 08/16/18 15:00 Pulse Ox 100 08/16/18 15:00 Intake & Output 08/16/18 08/16/18 08/17/18 06:59 18:59 06:59 Intake Total 420 620 Balance 420 620 Weight 30.5 kg Intake: Intake, IV Titration 420 620 Amount Azithromycin 500 mg In 250 Sodium Chloride 0.9% 250 ml @ 250 mls/hr IVPB Q24H [facility] Rx#:[id number] Sodium Chloride 0.9% 1, 320 320 000 ml @ 40 mls/hr IV . Q24H [facility] Rx#:[id number] cefTRIAXone 1,000 mg In 50 Sodium Chloride 0.9% 50 ml @ 100 mls/hr IVPB Q24HR [facility] Rx#:[id number] levETIRAcetam IV 1,000 mg 100 In Saline 1 100ml.bag @ 400 mls/hr IVPB Q12HR [facility] Rx#:[id number] Other: Voiding Method Diaper Diaper # Voids 1 1 - Constitutional General appearance: Present: disheveled - Neurologic Neurologic Comment(s): Neurologic examination: The patient has spastic paresis. He makes some eye contact. He is nonverbal. He does have flexion contractures. Patient is able to turn his head to sounds and is having some respiratory difficulty at present. Does require suctioning. Currently being based. - Labs CBC & Chem 7: 08/15/18 05:22 08/15/18 10:38 Labs: Microbiology - Last 24 Hours (Table) 08/14/18 08:30 Blood Culture - Preliminary Blood No Growth after 48 hours Assessment and Plan (1) Recurrent seizures Current Visit: Yes Status: Acute SNOMED Code(s): 19713278 (2) Community acquired pneumonia Current Visit: Yes Status: Acute SNOMED Code(s): 034107024 (3) Dehydration Current Visit: Yes Status: Acute SNOMED Code(s): 78764746 (4) Cerebral palsy Current Visit: Yes Status: Acute SNOMED Code(s): 480372245 Plan: The patient is a 23-year-old man with epilepsy with recent recurrent seizures most likely due to underlying infection, pneumonia. Patient is quite congested. Had some breakthrough seizures mostly in the evenings. He has had fever yesterday evening. He'll have repeat levels drawn for Lamictal and Keppra in the morning. We have adjusted his Keppra dose to thousand milligrams in morning and 1250 at night. If seizures continue we may have to add Vimpat.
[2018-08-16] MEDS: POLYETHYLENE GLYCOL 3350 17 GM POWD.PACK PO PRN (21:45)
[2018-08-17] MEDS: IBUPROFEN 600 MG TAB PO PRN (03:53)
[2018-08-17] MEDS ORDERED: SODIUM CHLORIDE 0.9% 500 ML 500 ML IV ONE (04:23)
[2018-08-17] MEDS: PANTOPRAZOLE SODIUM 40 MG GRANULE PKT PO SCH (05:48)
[2018-08-17 08:46] VITALS: TEMP 97.4
[2018-08-17] MEDS ORDERED: levETIRAcetam 500 MG TAB PO SCH ×2 (09:00→21:00)
[2018-08-17] MEDS: ENOXAPARIN 40 MG/0.4 ML SYRINGE SQ SCH (09:24)
[2018-08-17] MEDS: lamoTRIgine 100 MG TAB PO SCH (09:24)
[2018-08-17] MEDS: lamoTRIgine 25 MG TAB PO SCH (09:24)
[2018-08-17] MEDS: tiZANidine 4 MG TAB PO SCH (09:25)
[2018-08-17] MEDS: IPRATROPIUM-ALBUTEROL 3 ML NEB INHALATION SCH ×2 (09:53→13:58)
--- NOTE | 2018-08-17 11:37 | P.DS ---
Providers Date of admission: 08/14/18 11:33 Attending physician: Lamar Cash Consults: 08/14/18 11:32 Consult Physician Routine Consulting Provider: Simeon Sanchez Consult Reason/Comments: sz Do you want consulting provider notified?: Yes 08/16/18 19:40 Consult Physician Routine Consulting Provider: Reinaldo Hollis Consult Reason/Comments: sepsis Do you want consulting provider notified?: Yes Primary care physician: [facility] Course: 23-year-old gentleman with history of cerebral palsy and seizure disorder was admitted secondary to breakthrough seizures. Patient was on Keppra, Lamictal was added. Patient had a few seizures yesterday because of which patient received additional doses of antiseizure medication because of which patient is presently sleepy and is also being treated for right-sided pneumonia although there is no evidence of any infiltrate but mild pleural effusion. Patient will remain on antibiotics. Patient had low-grade fever on admission most probably viral in nature. Since last night patient didn't have any seizures. Patient will be monitored overnight EEG did show diffuse slowing consistent with encephalopathy. Patient is nonverbal presently bit sleepy secondary to antiseizure medications. 08/17/2018 Patient can need to have seizures yesterday and Prior dose was increased to 1250 at nighttime and continues to pursue thousand milligrams during the day patient is also on Lamictal. Discussed with neurology they're recommending transfer to [facility]. Discussed with the [facility] physician who accepted the patient patient will be transferred to [facility] for management of his seizures. His antibiotics will be discontinued. Patient received around 5 days of antibiotics for possible pneumonia although there is no evidence of infiltrate has mild pleural effusion on the right side. PHYSICAL EXAMINATION: Patient is lying in the bed comfortably, no acute distress, drowsy and lethargic.. Patient is nonverbal. Some chronic contractures from cerebral palsy low BMI secondary to cerebral palsy HEENT: Normocephalic. Neck is supple. Pupils reactive. Nostrils clear. Oral cavity is moist. Ears reveal no drainage. Neck reveals no JVD, carotid bruits, or thyromegaly. CHEST EXAMINATION: Trachea is central. Symmetrical expansion. Bibasilar crackles and no wheezing. CARDIAC: Normal S1, S2 with no gallops. No murmurs ABDOMEN: Soft. Bowel sounds normal. No organomegaly. No abdominal bruits. Extremities: reveal no edema. No clubbing or cyanosis Neurologically patient is lethargic and drowsy. Able to move all extremities. Skin: No rash or skin lesions. Musculoskeletal: No joint swelling or deformity. Normal range of motion. Assessment and Plan Plan: Sepsis most probably viral, possibility of right lower lobe pneumonia is low, antiemetics are being discontinued and sepsis resolved Recurrent myoclonic seizures: Patient is being transferred to [facility] Asthma not in acute exacerbation Seizure disorder. Cerebral palsy. Nonverbal. Supportive care patient is on scopolamine patch for excessive secretions which can cause seizures although patient has been on this medication at home DVT prophylaxis Patient Condition at Discharge: Fair Plan - Discharge Summary Discharge Rx Participant: No New Discharge Prescriptions: New levETIRAcetam [Keppra] 250 mg PO HS tab levETIRAcetam [Keppra] 1,000 mg PO HS tab levETIRAcetam [Keppra] 1,000 mg PO QAM tab Continue lamoTRIgine [LaMICtal] 150 mg PO BID clonazePAM [KlonoPIN] 0.5 mg PO BID Polyethylene Glycol 3350 [Miralax] 17 gm PO DAILY Omeprazole [PriLOSEC] 20 mg PO BID Scopolamine [TransDerm Scop] 1 patch TRANSDERM Q72H Ondansetron [Zofran ODT] 4 mg PO Q8HR PRN PRN Reason: Nausea tiZANidine HCL 4 mg PO BID Cholecalciferol [Vitamin D3] 1,000 unit PO DAILY Multivitamins, Thera [Multivitamin (formulary)] 1 tab PO DAILY Discontinued Levofloxacin [Levaquin] 500 mg PO DAILY Diazepam [Diastat] 7.5 mg RECTAL DAILY PRN PRN Reason: Anxiety levETIRAcetam [Keppra] 1,000 mg PO Q12HR Discharge Medication List Omeprazole [PriLOSEC] 20 mg PO BID 02/03/16 [History] Polyethylene Glycol 3350 [Miralax] 17 gm PO DAILY 02/03/16 [History] Scopolamine [TransDerm Scop] 1 patch TRANSDERM Q72H 02/03/16 [History] clonazePAM [KlonoPIN] 0.5 mg PO BID 02/03/16 [History] lamoTRIgine [LaMICtal] 150 mg PO BID 02/03/16 [History] Cholecalciferol [Vitamin D3] 1,000 unit PO DAILY 08/14/18 [History] Multivitamins, Thera [Multivitamin (formulary)] 1 tab PO DAILY 08/14/18 [History ] Ondansetron [Zofran ODT] 4 mg PO Q8HR PRN 08/14/18 [History] tiZANidine HCL 4 mg PO BID 08/14/18 [History] levETIRAcetam [Keppra] 1,000 mg PO HS tab 08/17/18 [Rx] levETIRAcetam [Keppra] 1,000 mg PO QAM tab 08/17/18 [Rx] levETIRAcetam [Keppra] 250 mg PO HS tab 08/17/18 [Rx] Follow up Appointment(s)/Referral(s): Simeon Sanchez MD [STAFF PHYSICIAN] - 1 Week Stephanie Minor MD [Primary Care Provider] - 08/22/18 1:00 pm () Patient Instructions/Handouts: New-Onset Seizure in Adults (DC), Pneumonia (DC) Discharge Disposition: OTHER INSTITUTION NOT DEFINED
[2018-08-17 11:42] VITALS: BP 86/49; PULSE 85; RESP 18
[2018-08-17] MEDS ORDERED: AZITHROMYCIN 500 MG TAB PO SCH (12:00)
[2018-08-17] MEDS: MULTIVITAMINS, THERA 1 EACH TAB PO SCH (13:16)
[2018-08-17] MEDS ORDERED: levETIRAcetam 250 MG TAB PO SCH (21:00)
--- NOTE | 2018-08-18 22:08 | P.PN ---
Subjective Progress Note Date: 08/15/18 Principal diagnosis: Pneumonia Recurrent seizures Patient is a 23-year-old male with a known history of cerebral palsy, seizure disorder and asthma was brought to the hospital due to fever and [facility] seizure activity at home. Patient also having prolonged postictal state. Patient is nonverbal at baseline. Aberrantly patient had a seizure activity while he was at school initially 2 days back and was sent to [facility]. Patient was monitored at [facility] and was sent home. Patient had a seizure activity of going back to school and has an episode of vomiting as well. Patient also developed fever and also shortness of breath with a rapid breathing and EMS was called to transfer the patient to [facility] for neurological evaluation. Patient is having shortness of breath and also copious amount of secretions in the throat. Patient also had myoclonic seizure activity this morning while he was in the cardiac care unit. Patient cannot provide any history and most of the history was taken from the medical records and grandmother at bedside. Chest x-ray showed correlate for lower lobe pneumonia. CT head showed no acute intracranial hemorrhage, mass affect or midline shift noted. Patient is kept nothing by mouth currently.. Patient was afebrile on admission. Patient is tachycardic and tachypneic. 2017 Patient's breathing status is much improved today. Continued on IV antibiotics. Lamictal levels are therapeutic. Patient is also on VNS stimulator. Neurology is following. Patient is being continued on seizure precautions and continue the current management. No fever no chills. Otherwise patient is nonverbal at baseline. Discussed with his family at bedside. Current medications reviewednopin as well as a VNS stimulator Objective - Vital Signs Vital signs: Vital Signs Temp 97.4 F L 08/17/18 08:00 Pulse 85 08/17/18 11:42 Resp 18 08/17/18 11:42 BP 86/49 08/17/18 11:41 Pulse Ox 97 08/17/18 11:41 - Exam PHYSICAL EXAMINATION: Patient is lying in the bed comfortably, no acute distress, awake and alert.. Patient is nonverbal.. HEENT: Normocephalic. Neck is supple. Pupils reactive. Nostrils clear. Oral cavity is moist. Ears reveal no drainage. Neck reveals no JVD, carotid bruits, or thyromegaly. CHEST EXAMINATION: Trachea is central. Symmetrical expansion. Bibasilar crackles and no wheezing. CARDIAC: Normal S1, S2 with no gallops. No murmurs ABDOMEN: Soft. Bowel sounds normal. No organomegaly. No abdominal bruits. Extremities: reveal no edema. No clubbing or cyanosis Neurologically patient is awake alert and nonverbal. Able to move all extremities. Skin: No rash or skin lesions. Psychiatric: Coperative. Could not be assessed completely Musculoskeletal: No joint swelling or deformity. Normal range of motion. - Labs CBC & Chem 7: 08/15/18 05:22 08/15/18 10:38 Labs: Microbiology - Last 24 Hours (Table) 08/14/18 08:30 Blood Culture - Preliminary Blood No Growth after 96 hours Assessment and Plan Assessment: Sepsis secondary to pneumonia likely community-acquired Recurrent myoclonic seizures with prolonged postictal phase. On Lamictal and Keppra along with VNS stimulator at home Asthma Seizure disorder. Currently on Lamictal and Keppra at home Cerebral palsy. Nonverbal. Able to knee walk and occasionally uses a walker but goes backwards. Needs to be fed. History of vaginal level stimulator. Patient has scheduled appointment next week for stimulator check. DVT prophylaxis Plan: Patient will be continued on Antivert the form of ceftriaxone and azithromycin. Ativan IV when necessary for seizures. Patient will be continued on Keppra IV and Lamictal could not be converted to IV as per pharmacy. Seizure precautions and fall precautions. Neurology is following. Continue with the throat suction due to frothy secretions. Continue with scopolamine patch which he uses at home. Further recommendations based on clinical course. Prognosis is guarded. Time with Patient: Greater than 30
[2018-08-19 05:56] LABS: Levetiracetam (Keppra) 23.3 ug/mL (3.0-60.0)
== END 2018-08-17 14:20 | disposition short-term general hospital (02) | DRG 871 ==
LOC: EC 08:08 → 3SCARD 11:33
PROVIDERS: ADMIT Hospitalist; ATTEND Hospitalist
DX: A41.89 Other specified sepsis (principal); J18.9 Pneumonia, unspecified organism; G40.919 Epilepsy, unspecified, intractable, without status epilepticus; G93.40 Encephalopathy, unspecified; Q04.6 Congenital cerebral cysts; E86.0 Dehydration; G80.9 Cerebral palsy, unspecified; J45.909 Unspecified asthma, uncomplicated; R32 Unspecified urinary incontinence; Z80.41 Family history of malignant neoplasm of ovary; Z83.3 Family history of diabetes mellitus; Z79.899 Other long term (current) drug therapy; Z88.8 Allergy status to other drugs, medicaments and biological substances
CPT/HCPCS: 36415; 70450; 71046; 80053; 80175; 80177; 81001; 82550; 82553; 83605; 83735; 84100; 84484; 85025; 85610; 85730; 87040; 87086; 87502; 93005; 94640; 94667; 95816; 96361; 96365; 96375; 99285

== ENCOUNTER 2019-09-06 15:40 | Emergency (ER) | payer OTHER ==
[2019-09-06] MEDS ORDERED: SODIUM CHLORIDE 0.9% 1,000 ML IV STA (15:56)
[2019-09-06] MEDS ORDERED: levETIRAcetam IV 500 MG in SODIUM CHLORIDE 0.9% 100 ML IVPB STA (16:13)
--- NOTE | 2019-09-06 16:14 | ED ---
General Adult HPI - General Chief complaint: Seizure Stated complaint: Seizure Time Seen by Provider: 09/06/19 15:55 Source: family, EMS Mode of arrival: EMS Limitations: no limitations - History of Present Illness Initial comments: Dictation was produced using [employer] dictation software. please excuse any grammatical, word or spelling errors. Chief Complaint: 24-year-old male past medical history of cerebral palsy and georgette mclaughlin presents to seizures. History of Present Illness: 4-year-old male he is chronically debilitated. He has history of cerebral palsy. Patient had a seizure today lasting for several minutes. Family members at bedside reports that patient had a long episode of cluster seizure today. Patient seizures to the last from 10-20 seconds however given that this most a lot longer EMS was called patient was brought to the emergency department. Patient was given rectal Diastat. Patient is on Vimpat, Keppra and Lamictal for control of seizures. Patient's neurologist is Dr. Robertson of [facility]. Patient has been suffering from a pinkeye of the right eye recently. Patient is given IM Versed in the EMS rig while en route to the emergency department because patient was having a seizure. Patient's frequent seizures. The ROS documented in this emergency department record has been reviewed and confirmed by me. Those systems with pertinent positive or negative responses have been documented in the HPI. All other systems are other negative and/or noncontributory. PHYSICAL EXAM: General Impression: not in acute distress, cachexic HEENT: Normocephalic atraumatic, extra-ocular movements intact, pupils equal and reactive to light bilaterally, mucous membranes moist, conjunctivitis to the right eye Cardiovascular: Heart regular rate and rhythm, S1&S2 audible, no murmurs, rubs or gallops Chest: Lungs clear to auscultation bilaterally, no rhonchi, no wheeze, no rales Abdomen: Bowel sounds present, abdomen soft, non-tender, non-distended, no organomegaly Musculoskeletal: Pulses present and equal in all extremities, no peripheral edema Motor: no focal deficits noted Neurological: post ictal Skin: Intact with no visualized rashes ED course: 24-year-old male with past medical history history of seizures presents with seizure. Vital signs upon arrival are within acceptable limits. Laboratory evaluation obtained. Mild leukocytosis of 13.5 likely secondary to stress. Hemoglobin 10.6 which is patient's baseline. Metabolic panel shows Acidosis which is likely secondary to seizures. Patient's initial blood glucose is 58. He is given IV dextrose with increased at 275. Urinalysis obtained with 3+ glucose and 1+ ketones. Patient given intravenous fluids and 1 g of Keppra. Discussed patient case with patient's neurologist Dr. Robertson who requests that we increase patient's Vimpat 200 mg twice a day and to follow-up in her neurology clinic. Patient observed in emergency Department with improvement of mental status. Says are open and is responsive. Vital taking patient home. Return precautions discussed. All questions answered. EKG interpretation: Ventricular rate 103, sinus tachycardia, SC interval 150, Q is 92, QTc 461. No SC prolongation, no QTC prolongation, no ST or T-wave changes noted. Overall, this EKG is unremarkable - Related Data Home Medications Medication Instructions Recorded Confirmed Polyethylene Glycol 3350 [Miralax] 17 gm PO HS 02/03/16 09/06/19 Scopolamine [TransDerm Scop] 1 patch TRANSDERM Q72H 02/03/16 09/06/19 clonazePAM [KlonoPIN] 0.5 mg PO BID 02/03/16 09/06/19 lamoTRIgine [LaMICtal] 150 mg PO BID 02/03/16 09/06/19 Cannabidiol (Cbd) Extract 1.5 mg PO BID 09/06/19 09/06/19 [Epidiolex] Diazepam [Diastat] 7.5 mg RECTAL ONCE PRN 09/06/19 09/06/19 Lacosamide [Vimpat] 50 mg PO BID 09/06/19 09/06/19 levETIRAcetam [Keppra] 500 mg PO BID 09/06/19 09/06/19 levETIRAcetam [Keppra] 750 mg PO BID 09/06/19 09/06/19 Previous Rx's Medication Instructions Recorded Lacosamide [Vimpat] 100 mg PO BID 7 Days #30 tab 09/06/19 Allergies Allergy/AdvReac Type Severity Reaction Status Date / Time adhesive tape Allergy BLISTERS Verified 09/06/19 17:27 AND RED SKIN Review of Systems ROS Statement: Those systems with pertinent positive or pertinent negative responses have been documented in the HPI. ROS Other: All systems not noted in ROS Statement are negative. Past Medical History Past Medical History: Asthma, Seizure Disorder Additional Past Medical History / Comment(s): Cerebrak palsey, nonverbal, able to knee walk and occasionally uses walker but goes backwards, needs to be fed, incontinent or urine/stool, seizures with last time 08/14/18, occasional problem with vomiting for past year, esophagitis, hiatal hernia. History of Any Multi-Drug Resistant Organisms: None Reported Past Surgical History: Hernia Repair Additional Past Surgical History / Comment(s): VAGAL NERVE STIMULATOR, SURGERY FOR TESTICULAR NON DESCENCION/INGUINAL HERNIA SURGERY, BILATERAL FOOT SURGERY- LENGTHENED ACHILLES AND MOVED MUSCLES, benign brain surg tumor removal, EGD with bx. Past Anesthesia/Blood Transfusion Reactions: No Reported Reaction Past Psychological History: No Psychological Hx Reported Smoking Status: Never smoker Past Alcohol Use History: None Reported Past Drug Use History: None Reported - Past Family History Mother Family Medical History: Cancer Additional Family Medical History / Comment(s): Mother had ovarian cancer with surgery in 2017. Father Additional Family Medical History / Comment(s): Pts father is not involved in pt's life. Father's side of family has diabetes. General Exam Limitations: no limitations Course Vital Signs 09/06/19 09/06/19 09/06/19 15:44 17:04 18:08 Temperature 97.9 F Pulse Rate 108 H 90 73 Respiratory 18 18 18 Rate Blood Pressure 115/62 104/61 96/65 O2 Sat by Pulse 98 98 97 Oximetry 09/06/19 19:00 Temperature Pulse Rate 73 Respiratory 20 Rate Blood Pressure 95/61 O2 Sat by Pulse 100 Oximetry Medical Decision Making - Lab Data Result diagrams: 09/06/19 15:40 09/06/19 15:40 Lab Results 09/06/19 09/06/19 09/06/19 Range/Units 15:40 15:40 18:38 WBC 13.5 H (3.8-10.6) k/uL RBC 3.88 L (4.30-5.90) m/uL Hgb 10.6 L (13.0-17.5) gm/dL Hct 32.9 L (39.0-53.0) % MCV 84.7 (80.0-100.0) fL MCH 27.2 (25.0-35.0) pg MCHC 32.1 (31.0-37.0) g/dL RDW 17.7 H (11.5-15.5) % Plt Count 298 (150-450) k/uL Neutrophils % 88 % Lymphocytes % 7 % Monocytes % 4 % Eosinophils % 0 % Basophils % 0 % Neutrophils # 11.9 H (1.3-7.7) k/uL Lymphocytes # 0.9 L (1.0-4.8) k/uL Monocytes # 0.5 (0-1.0) k/uL Eosinophils # 0.1 (0-0.7) k/uL Basophils # 0.0 (0-0.2) k/uL Hypochromasia Slight Anisocytosis Slight Sodium 140 (137-145) mmol/L Potassium 4.7 (3.5-5.1) mmol/L Chloride 106 (98-107) mmol/L Carbon Dioxide 18 L (22-30) mmol/L Anion Gap 16 mmol/L BUN 22 H (9-20) mg/dL Creatinine 0.57 L (0.66-1.25) mg/dL Est GFR (CKD-EPI)AfAm >90 (>60 ml/min/1.73 sqM) Est GFR (CKD-EPI)NonAf >90 (>60 ml/min/1.73 sqM) Glucose 58 L (74-99) mg/dL POC Glucose (mg/dL) 60 L (75-99) mg/dL POC Glu [employer] ID Jessica Rust Calcium 10.0 (8.4-10.2) mg/dL Magnesium 2.0 (1.6-2.3) mg/dL Urine Color Urine Appearance (Clear) Urine pH (5.0-8.0) Ur Specific [place] (1.001-1.035) Urine Protein (Negative) Urine Glucose (UA) (Negative) Urine Ketones (Negative) Urine Blood (Negative) Urine Nitrite (Negative) Urine Bilirubin (Negative) Urine Urobilinogen (<2.0) mg/dL Ur Leukocyte Esterase (Negative) 09/06/19 09/06/19 Range/Units 18:57 19:34 WBC (3.8-10.6) k/uL RBC (4.30-5.90) m/uL Hgb (13.0-17.5) gm/dL Hct (39.0-53.0) % MCV (80.0-100.0) fL MCH (25.0-35.0) pg MCHC (31.0-37.0) g/dL RDW (11.5-15.5) % Plt Count (150-450) k/uL Neutrophils % % Lymphocytes % % Monocytes % % Eosinophils % % Basophils % % Neutrophils # (1.3-7.7) k/uL Lymphocytes # (1.0-4.8) k/uL Monocytes # (0-1.0) k/uL Eosinophils # (0-0.7) k/uL Basophils # (0-0.2) k/uL Hypochromasia Anisocytosis Sodium (137-145) mmol/L Potassium (3.5-5.1) mmol/L Chloride (98-107) mmol/L Carbon Dioxide (22-30) mmol/L Anion Gap mmol/L BUN (9-20) mg/dL Creatinine (0.66-1.25) mg/dL Est GFR (CKD-EPI)AfAm (>60 ml/min/1.73 sqM) Est GFR (CKD-EPI)NonAf (>60 ml/min/1.73 sqM) Glucose (74-99) mg/dL POC Glucose (mg/dL) 275 H (75-99) mg/dL POC Glu [employer] ID Jessica Rust Calcium (8.4-10.2) mg/dL Magnesium (1.6-2.3) mg/dL Urine Color Yellow Urine Appearance Clear (Clear) Urine pH 5.5 (5.0-8.0) Ur Specific [place] 1.022 (1.001-1.035) Urine Protein Negative (Negative) Urine Glucose (UA) 3+ H (Negative) Urine Ketones 1+ H (Negative) Urine Blood Negative (Negative) Urine Nitrite Negative (Negative) Urine Bilirubin Negative (Negative) Urine Urobilinogen <2.0 (<2.0) mg/dL Ur Leukocyte Esterase Negative (Negative) Disposition Clinical Impression: Recurrent seizures Disposition: HOME SELF-CARE Instructions (If sedation given, give patient instructions): Recurrent Seizures in Adults (ED) Additional Instructions: increase vimpat to 100mg BID, f/u with Dr. Robertson Prescriptions: Lacosamide [Vimpat] 100 mg PO BID 7 Days #30 tab Is patient prescribed a controlled substance at d/c from ED?: No Time of Disposition: 20:12
[2019-09-06 16:18] LABS: Anisocytosis Slight; Basophils % (A) 0 %; Eosinophils # (A) 0.1 k/uL (0-0.7); Eosinophils % (A) 0 %; HCT 32.9 % (39.0-53.0); HGB 10.6 gm/dL (13.0-17.5); Hypochromasia Slight; Lymphocytes # (A) 0.9 k/uL (1.0-4.8); Lymphocytes % (A) 7 %; MCH 27.2 pg (25.0-35.0); MCHC 32.1 g/dL (31.0-37.0); MCV 84.7 fL (80.0-100.0); Mean Platelet Volume 6.7; Monocytes # (A) 0.5 k/uL (0-1.0); Monocytes % (A) 4 %; Neutrophils # (A) 11.9 k/uL (1.3-7.7); Neutrophils % (A) 88 %; Platelet Count 298 k/uL (150-450); RBC 3.88 m/uL (4.30-5.90); RDW 17.7 % (11.5-15.5); WBC 13.5 k/uL (3.8-10.6)
[2019-09-06 16:30] LABS: African American GFR (CKD) >90 (>60 ml/min/1.73 sqM); Anion Gap 16 mmol/L; Blood Urea Nitrogen 22 mg/dL (9-20); Carbon Dioxide 18 mmol/L (22-30); Chloride 106 mmol/L (98-107); Glucose 58 mg/dL (74-99); Non-African American GFR(CKD) >90 (>60 ml/min/1.73 sqM); Potassium 4.7 mmol/L (3.5-5.1); Sodium 140 mmol/L (137-145)
--- NOTE | 2019-09-06 16:41 | XR ---
EXAMINATION TYPE: XR chest 2V DATE OF EXAM: 09/06/2019 COMPARISON: 08/15/2018 HISTORY: 24-year-old male with seizure, cerebral palsy TECHNIQUE: AP and lateral views FINDINGS: Left anterior chest wall generator device with leads extending to the left side of the nec k. Heart normal size. Mild interstitial prominence is stable. No consolidation or pleural effusion. S evere osteopenia limits assessment of the spine on the lateral view. IMPRESSION: Similar interstitial prominence, possible bronchitis or asthma. Otherwise, no acute change seen.
[2019-09-06] MEDS ORDERED: ERYTHROMYCIN 5 MG/GM OPHTH OINT 3.5 GM TUBE RIGHT EYE STA (17:23)
[2019-09-06] MEDS ORDERED: DEXTROSE 50% SYRINGE 50 ML IVP STA (18:31)
[2019-09-06 18:39] LABS: Glucose,Whole Blood 60 mg/dL (75-99)
[2019-09-06 19:04] LABS: Glucose,Whole Blood 275 mg/dL (75-99)
[2019-09-06 19:49] LABS: Appearance,Urine Clear (Clear); Bilirubin,Urine Negative (Negative); Blood,Urine Negative (Negative); Color,Urine Yellow; Glucose,Urine (UA) 3+ (Negative); Ketones,Urine 1+ (Negative); Leukocyte Esterase,Urine Negative (Negative); Nitrite,Urine Negative (Negative); PH, Urine 5.5 (5.0-8.0); Protein,Urine Negative (Negative); Specific Gravity,Urine 1.022 (1.001-1.035); Urobilinogen,Urine <2.0 mg/dL (<2.0)
[2019-09-06 20:26] VITALS: BP 100/71; PULSE 76; RESP 18; TEMP 98
== END 2019-09-06 20:27 | disposition home or self-care (01) ==
LOC: EC 15:40 → EEVIPCON 15:40 → EC 20:27
DX: G40.909 Epilepsy, unspecified, not intractable, without status epilepticus (principal); G80.9 Cerebral palsy, unspecified; H10.021 Other mucopurulent conjunctivitis, right eye; R00.0 Tachycardia, unspecified; D72.829 Elevated white blood cell count, unspecified; R82.4 Acetonuria; Z79.899 Other long term (current) drug therapy; Z91.048 Other nonmedicinal substance allergy status; Z96.82 Presence of neurostimulator
CPT/HCPCS: 96365; 96375; 96361; 99284; 36415; 93005; 80048; 83735; 85025; 81003; 71046; J1953

== ENCOUNTER 2019-09-06 23:07 | Emergency (ER) | payer OTHER ==
[2019-09-06] MEDS ORDERED: LORazepam 2 MG/ML INJ IV STA (23:17)
--- NOTE | 2019-09-06 23:55 | ED ---
Seizure HPI - General Chief Complaint: Seizure Stated Complaint: seizures Time Seen by Provider: 09/06/19 23:25 Source: EMS Mode of arrival: EMS Limitations: altered mental status - History of Present Illness Initial Comments: 24-year-old male patient with past medical history significant for cerebral palsy and seizures presents to the emergency department today for evaluation after having clusters of seizures throughout the day. Patient was seen and evaluated here earlier in the day, had lab testing which was unremarkable. He did receive a loading dose of Keppra 1000 mg, and also an increaseto his Vimpat dosage to 200 mg twice daily. Case was discussed with his neurologist at the [facility] [place] who recommended outpatient follow-up in the clinic. Shared decision making was utilized and parent agreed to discharge. After discharge patient had additional seizure episodes. Parent states when they arrived home he had 10-15 minutes of back to back seizure activity. Patient was brought in by EMS and upon arrival had 2 additional seizures. Parent describes seizures as generalized shaking with eyes rolling back. He does lose bladder control. Parent states he has been treated for conjunctivitis in the last week. They deny any recent head injury. Denies any weight gain or loss. Denies any fever or chills. - Related Data Home Medications Medication Instructions Recorded Confirmed Polyethylene Glycol 3350 [Miralax] 17 gm PO HS 02/03/16 09/06/19 Scopolamine [TransDerm Scop] 1 patch TRANSDERM Q72H 02/03/16 09/06/19 clonazePAM [KlonoPIN] 0.5 mg PO BID 02/03/16 09/06/19 lamoTRIgine [LaMICtal] 150 mg PO BID 02/03/16 09/06/19 Cannabidiol (Cbd) Extract 1.5 mg PO BID 09/06/19 09/06/19 [Epidiolex] Diazepam [Diastat] 7.5 mg RECTAL ONCE PRN 09/06/19 09/06/19 Lacosamide [Vimpat] 50 mg PO BID 09/06/19 09/06/19 levETIRAcetam [Keppra] 500 mg PO BID 09/06/19 09/06/19 levETIRAcetam [Keppra] 750 mg PO BID 09/06/19 09/06/19 Previous Rx's Medication Instructions Recorded Lacosamide [Vimpat] 100 mg PO BID 7 Days #30 tab 09/06/19 Allergies Allergy/AdvReac Type Severity Reaction Status Date / Time adhesive tape Allergy BLISTERS Verified 09/06/19 23:18 AND RED SKIN Review of Systems ROS Statement: Those systems with pertinent positive or pertinent negative responses have been documented in the HPI. ROS Other: All systems not noted in ROS Statement are negative. Past Medical History Past Medical History: Asthma, Seizure Disorder Additional Past Medical History / Comment(s): Cerebrak palsey, nonverbal, able to knee walk and occasionally uses walker but goes backwards, needs to be fed, incontinent or urine/stool, seizures with last time 08/14/18, occasional problem with vomiting for past year, esophagitis, hiatal hernia. History of Any Multi-Drug Resistant Organisms: None Reported Past Surgical History: Hernia Repair Additional Past Surgical History / Comment(s): VAGAL NERVE STIMULATOR, SURGERY F OR TESTICULAR NON DESCENCION/INGUINAL HERNIA SURGERY, BILATERAL FOOT SURGERY- LENGTHENED ACHILLES AND MOVED MUSCLES, benign brain surg tumor removal, EGD with bx. Past Anesthesia/Blood Transfusion Reactions: No Reported Reaction Past Psychological History: No Psychological Hx Reported Smoking Status: Never smoker Past Alcohol Use History: None Reported Past Drug Use History: None Reported - Past Family History Mother Family Medical History: Cancer Additional Family Medical History / Comment(s): Mother had ovarian cancer with surgery in 2017. Father Additional Family Medical History / Comment(s): Pts father is not involved in pt's life. Father's side of family has diabetes. General Exam Limitations: altered mental status General appearance: other (This is a thin appearing adult male patient in no acute distress. Vital signs upon presentation are pulse 71, respirations 18, blood pressure 109/78, pulse ox 98% on room air.) Eye exam: Present: normal appearance, PERRL, EOMI. Absent: scleral icterus, conjunctival injection, periorbital swelling ENT exam: Present: normal oropharynx Respiratory exam: Present: normal lung sounds bilaterally. Absent: respiratory distress, wheezes, rales, rhonchi, stridor Cardiovascular Exam: Present: regular rate, normal rhythm, normal heart sounds. Absent: systolic murmur, diastolic murmur, rubs, gallop, clicks GI/Abdominal exam: Present: soft, normal bowel sounds. Absent: distended, tenderness, guarding, rebound, rigid Neurological exam: Absent: alert (Drowsy) Expanded Eye Response: (2) open to pain Motor Response: (5) localizes to pain Verbal Response: (3) inappropriate words Carlos Total: 10 Psychiatric exam: Present: normal affect, normal mood Skin exam: Present: warm, dry, intact, normal color. Absent: rash Course Vital Signs 09/06/19 09/07/19 23:14 00:59 Pulse Rate 71 80 Respiratory 18 17 Rate Blood Pressure 109/78 109/84 O2 Sat by Pulse 98 97 Oximetry Medical Decision Making - Medical Decision Making 24-year-old male patient presents with history significant for cerebral palsy, epilepsy, who is nonverbal presents to the emergency department today for the second time of her having recurrent seizures. Prior to arrival patient had a 10-15 minute period of back to back seizures. He did have 2 seizures upon arrival here each lasting approximately 15 seconds each. He did receive 1 mg of Ativan. He has had no further seizure activity on the department. Given that this is his second visit today we will transfer to [place] emergency department for further evaluation by his neurologist Dr. Yehuda Robertson. I did discuss the case with Dr. Robertson who is agreeable to the transfer. Dr. Mckeon of [place] ED is also agreeable. Family is agreeable with this plan. - Lab Data Result diagrams: 09/07/19 00:10 Lab Results 09/07/19 09/07/19 09/07/19 Range/Units 00:09 00:10 01:31 Sodium 140 (137-145) mmol/L Potassium 4.1 (3.5-5.1) mmol/L Chloride 110 H (98-107) mmol/L Carbon Dioxide 20 L (22-30) mmol/L Anion Gap 10 mmol/L BUN 19 (9-20) mg/dL Creatinine 0.42 L (0.66-1.25) mg/dL Est GFR (CKD-EPI)AfAm >90 (>60 ml/min/1.73 sqM) Est GFR (CKD-EPI)NonAf >90 (>60 ml/min/1.73 sqM) Glucose 75 (74-99) mg/dL POC Glucose (mg/dL) 75 203 H (75-99) mg/dL POC Glu [employer] Adrien Brown [place] Calcium 9.5 (8.4-10.2) mg/dL Total Bilirubin 0.2 (0.2-1.3) mg/dL AST 33 (17-59) U/L ALT 25 (21-72) U/L Alkaline Phosphatase 150 H (38-126) U/L Total Protein 7.2 (6.3-8.2) g/dL Albumin 3.8 (3.5-5.0) g/dL Disposition Clinical Impression: Recurrent seizures Disposition: OTHER INSTITUTION NOT DEFINED Condition: Serious Referrals: Stephanie Minor MD [Primary Care Provider] - 1-2 days - Out of Hospital Transfer - Req. Specs Out of Hospital Transfer - Requested Specifics: Other Emergency Center ([place] [facility])
[2019-09-07 00:20] LABS: Glucose,Whole Blood 75 mg/dL (75-99)
[2019-09-07] MEDS ORDERED: DEXTROSE 50% SYRINGE 50 ML IVP STA (00:30)
[2019-09-07 00:36] LABS: ALT 25 U/L (21-72); AST 33 U/L (17-59); African American GFR (CKD) >90 (>60 ml/min/1.73 sqM); Albumin 3.8 g/dL (3.5-5.0); Alkaline Phosphatase 150 U/L (38-126); Anion Gap 10 mmol/L; Blood Urea Nitrogen 19 mg/dL (9-20); Calcium 9.5 mg/dL (8.4-10.2); Carbon Dioxide 20 mmol/L (22-30); Chloride 110 mmol/L (98-107); Glucose 75 mg/dL (74-99); Non-African American GFR(CKD) >90 (>60 ml/min/1.73 sqM); Potassium 4.1 mmol/L (3.5-5.1); Sodium 140 mmol/L (137-145); Total Bilirubin 0.2 mg/dL (0.2-1.3); Total Protein 7.2 g/dL (6.3-8.2)
[2019-09-07 01:40] LABS: Glucose,Whole Blood 203 mg/dL (75-99)
[2019-09-07 02:32] VITALS: BP 106/87; PULSE 68; RESP 18
== END 2019-09-07 02:55 | disposition other institution (70) ==
LOC: EC 23:07
DX: G40.909 Epilepsy, unspecified, not intractable, without status epilepticus (principal); G80.9 Cerebral palsy, unspecified; Z79.899 Other long term (current) drug therapy; Z91.048 Other nonmedicinal substance allergy status
CPT/HCPCS: 36415; 80053; 99285; 96374; 96375; J2060